=== PATIENT | male | born 1975 | race Caucasian/White ===

== ENCOUNTER 2020-01-02 13:51 | Outpatient (CLI) | payer OTHER, SELFPAY ==
--- NOTE | 2020-01-02 14:00 | XR_ITS ---
WS: [id number] Abdomen series: PA CHEST AND 2 VIEWS OF THE ABDOMEN HISTORY: ABDOMINAL PAIN GENERALIZED COMPARISON: None available. Lungs are clear and well aerated. Heart size is normal. No free air beneath the diaphragm. Air-fluid level in the dilated loop of GI tract in the LEFT abdomen. Dilated loop is probably a small bowel loop. Recent CT did not demonstrate a focal transition point. XR/XR acute abdomen series 51816 IMPRESSION: Dilated loop of small bowel in the LEFT abdomen, similar to the prior CT of 12/11. Near similar appearance to the prior CT from 12/14/2017.
== END 2020-01-02 13:52 | disposition home or self-care (01) ==
LOC: RADWPI 13:56
PROVIDERS: Family Provider Family Medicine; PCP Family Medicine; Visit Provider Family Medicine
DX: R10.84 Generalized abdominal pain (principal)
CPT/HCPCS: 74022

== ENCOUNTER 2020-02-20 16:53 | Outpatient (CLI) | payer OTHER, SELFPAY ==
[2020-02-20 17:27] LABS: Hematocrit 36.4 % (42.0-52.0); Hemoglobin 10.9 g/dL (11.7-16.6); Mean Corpuscular HGB Conc 29.9 g/dL (30.0-36.0); Mean Corpuscular Hemoglobin 30.7 pg (28.0-34.0); Mean Corpuscular Volume 102.5 fL (80-94); Mean Platelet Volume 11.7 fL (7.4-10.4); Platelet Count 446 10^3/cmm (130-400); Red Blood Count 3.55 10^6/uL (4.1-5.3); Red Cell Distribution Width 12.7 % (12.1-15.1); White Blood Count 9.2 10^3/uL (4.0-10.0)
[2020-02-20 17:53] LABS: Absolute Eosinophils 0.3 10^3/cmm (0.0-0.7); Absolute Segmented Neutrophil 7.2 10/cmm (1.6-7.1); Eosinophils 4 %; Lymphocytes 12 %; Monocytes Absolute 0.4 10^3/cmm (0.1-0.6); Segmented Neutrophils 79 %; Total Cells Counted 100 (0-100)
[2020-02-20 17:54] LABS: Platelet Estimate Increased (Normal); Polychromasia 1+
== END 2020-02-20 16:54 | disposition home or self-care (01) ==
LOC: LAB 16:57
PROVIDERS: Family Provider Family Medicine; PCP Family Medicine; Visit Provider Surgery
DX: Z48.89 Encounter for other specified surgical aftercare (principal)
CPT/HCPCS: 85007; 85027

== ENCOUNTER 2020-02-21 14:18 | Outpatient (CLI) | payer OTHER, SELFPAY ==
[2020-02-21 14:34] LABS: Hematocrit 38.1 % (42.0-52.0); Hemoglobin 12.2 g/dL (11.7-16.6); Mean Corpuscular Hemoglobin 29.8 pg (28.0-34.0); Mean Corpuscular Volume 92.9 fL (80-94); Mean Platelet Volume 9.8 fL (7.4-10.4); Platelet Count 640 10^3/cmm (130-400); Red Cell Distribution Width 12.3 % (12.1-15.1); White Blood Count 10.7 10^3/uL (4.0-10.0)
[2020-02-21 15:09] LABS: Eosinophils 1 %; Lymphocytes 14 %; Platelet Estimate Increased (Normal); Polychromasia 1+; Segmented Neutrophils 73 %; Stomatocytes 1+; Total Cells Counted 100 (0-100)
[2020-02-21 15:12] LABS: Blood Urea Nitrogen 25 mg/dL (6-20); Calcium 9.9 mg/dL (8.5-10.5); Carbon Dioxide 34 mmol/L (22-29); Glomerular Filtration Rate 122.5 mL/min (90-130); Magnesium 2.4 mg/dL (1.7-2.3); Total Protein 8.3 g/dL (6.6-8.7)
[2020-02-21 16:01] LABS: Glucose 84 mg/dL (65-115); Osmolality Calculated 274 mOsm/kg (285-295); Phosphorus 4.8 mg/dL (2.5-4.5); Potassium 3.9 mmol/L (3.5-5.1)
[2020-02-21 16:02] LABS: Alanine Aminotransferase 220 U/L (0-41); Aspartate Amino Transferase 90 U/L (0-40)
[2020-02-21 16:05] LABS: Alkaline Phosphatase 448 IU/L (40-130)
[2020-02-22 10:16] LABS: Anion Gap 18.9 (5-19); Chloride 85 mmol/L (98-107)
[2020-02-22 10:18] LABS: Total Bilirubin 0.8 mg/dL (0.15-1.2)
[2020-02-22 10:19] LABS: Albumin Level 4.2 g/dL (3.5-5.2); Globulin 4.1 g/dL (1.3-4.6)
[2020-02-22 10:27] LABS: Sodium 134 mmol/L (136-145)
[2020-02-22 13:54] LABS: Triglycerides 79 mg/dL (0-150)
== END 2020-02-21 14:19 | disposition home or self-care (01) ==
LOC: LAB 14:20
PROVIDERS: Family Provider Family Medicine; PCP Family Medicine; Visit Provider Surgery
DX: Z48.815 Encounter for surgical aftercare following surgery on the digestive system (principal)
CPT/HCPCS: 80053; 83735; 84100; 84478; 85007; 85027

== ENCOUNTER 2020-02-27 13:00 | Outpatient (CLI) | payer OTHER, SELFPAY ==
[2020-02-27 14:20] LABS: Hematocrit 31.9 % (42.0-52.0); Hemoglobin 9.9 g/dL (11.7-16.6); Mean Corpuscular Hemoglobin 29.8 pg (28.0-34.0); Mean Corpuscular Volume 96.1 fL (80-94); Mean Platelet Volume 11.2 fL (7.4-10.4); Platelet Count 326 10^3/cmm (130-400); Red Blood Count 3.32 10^6/uL (4.1-5.3); Red Cell Distribution Width 13.3 % (12.1-15.1)
[2020-02-27 14:41] LABS: Absolute Eosinophils 0.2 10^3/cmm (0.0-0.7); Absolute Segmented Neutrophil 3.8 10/cmm (1.6-7.1); Eosinophils 4 %; Lymphocytes 23 %; Monocytes Absolute 0.5 10^3/cmm (0.1-0.6); Platelet Estimate Normal (Normal); Segmented Neutrophils 64 %; Total Cells Counted 100 (0-100)
[2020-02-27 14:46] LABS: Alanine Aminotransferase 651 U/L (0-41); Albumin Level 3.2 g/dL (3.5-5.2); Alkaline Phosphatase 553 IU/L (40-130); Anion Gap 14.3 (5-19); Aspartate Amino Transferase 257 U/L (0-40); Blood Urea Nitrogen 13 mg/dL (6-20); Calcium 8.8 mg/dL (8.5-10.5); Carbon Dioxide 27 mmol/L (22-29); Chloride 102 mmol/L (98-107); Globulin 3.4 g/dL (1.3-4.6); Glomerular Filtration Rate 233.7 mL/min (90-130); Glucose 87 mg/dL (65-115); Magnesium 2.1 mg/dL (1.7-2.3); Osmolality Calculated 284 mOsm/kg (285-295); Phosphorus 3.8 mg/dL (2.5-4.5); Potassium 4.3 mmol/L (3.5-5.1); Sodium 139 mmol/L (136-145); Total Bilirubin 1.2 mg/dL (0.15-1.2); Total Protein 6.6 g/dL (6.6-8.7)
== END 2020-02-27 13:01 | disposition home or self-care (01) ==
LOC: LAB 13:01
PROVIDERS: Family Provider Family Medicine; PCP Family Medicine; Visit Provider Surgery
DX: Z48.815 Encounter for surgical aftercare following surgery on the digestive system (principal)
CPT/HCPCS: 80053; 83735; 84100; 85007; 85027

== ENCOUNTER 2020-03-05 14:56 | Outpatient (CLI) | payer OTHER, SELFPAY ==
[2020-03-05 15:30] LABS: Hematocrit 39.8 % (42.0-52.0); Hemoglobin 12.2 g/dL (11.7-16.6); Mean Corpuscular HGB Conc 30.7 g/dL (30.0-36.0); Mean Corpuscular Hemoglobin 29.5 pg (28.0-34.0); Mean Corpuscular Volume 96.4 fL (80-94); Mean Platelet Volume 12.5 fL (7.4-10.4); Platelet Count 187 10^3/cmm (130-400); Red Blood Count 4.13 10^6/uL (4.1-5.3); Red Cell Distribution Width 15.3 % (12.1-15.1); White Blood Count 3.2 10^3/uL (4.0-10.0)
[2020-03-05 15:53] LABS: Alanine Aminotransferase 474 U/L (0-41); Albumin Level 3.4 g/dL (3.5-5.2); Alkaline Phosphatase 480 IU/L (40-130); Aspartate Amino Transferase 153 U/L (0-40); Blood Urea Nitrogen 19 mg/dL (6-20); Calcium 8.6 mg/dL (8.5-10.5); Carbon Dioxide 28 mmol/L (22-29); Chloride 100 mmol/L (98-107); Glomerular Filtration Rate 233.7 mL/min (90-130); Glucose 90 mg/dL (65-115); Osmolality Calculated 278 mOsm/kg (285-295); Sodium 136 mmol/L (136-145); Total Bilirubin 1.2 mg/dL (0.15-1.2); Total Protein 6.4 g/dL (6.6-8.7)
[2020-03-05 17:16] LABS: Absolute Eosinophils 0.1 10^3/cmm (0.0-0.7); Absolute Segmented Neutrophil 1.7 10/cmm (1.6-7.1); Band Neutrophils Absolute 0.1 10^3/cmm (0.0-1.2); Eosinophils 4 %; Lymphocytes 32 %; Monocytes Absolute 0.2 10^3/cmm (0.1-0.6); Segmented Neutrophils 56 %; Total Cells Counted 100 (0-100)
[2020-03-05 17:17] LABS: Platelet Estimate Normal (Normal); Polychromasia 1+; Stomatocytes 1+
[2020-03-06 14:45] LABS: Phosphorus 4.2 mg/dL (2.5-4.5)
== END 2020-03-05 14:57 | disposition home or self-care (01) ==
PROVIDERS: Family Provider Family Medicine; PCP Family Medicine; Visit Provider Surgery
DX: Z48.815 Encounter for surgical aftercare following surgery on the digestive system (principal)
CPT/HCPCS: 80053; 83735; 84100; 85007; 85027

== ENCOUNTER 2020-03-12 14:34 | Outpatient (CLI) | payer OTHER, SELFPAY ==
[2020-03-12 15:35] LABS: Hematocrit 32.2 % (42.0-52.0); Hemoglobin 9.8 g/dL (11.7-16.6); Mean Corpuscular HGB Conc 30.4 g/dL (30.0-36.0); Mean Corpuscular Volume 98.5 fL (80-94); Mean Platelet Volume 12.8 fL (7.4-10.4); Platelet Count 262 10^3/cmm (130-400); Red Blood Count 3.27 10^6/uL (4.1-5.3); Red Cell Distribution Width 16.3 % (12.1-15.1); White Blood Count 4.9 10^3/uL (4.0-10.0)
[2020-03-12 16:40] LABS: Absolute Segmented Neutrophil 2.9 10/cmm (1.6-7.1); Eosinophils 2 %; Lymphocytes 30 %; Lymphocytes Absolute 1.5 10^3/cmm (1.2-3.4); Monocytes Absolute 0.3 10^3/cmm (0.1-0.6); Segmented Neutrophils 60 %; Total Cells Counted 100 (0-100)
[2020-03-12 16:41] LABS: Platelet Estimate Normal (Normal)
[2020-03-13 02:07] LABS: Alanine Aminotransferase 424 U/L (0-41); Albumin Level 3.7 g/dL (3.5-5.2); Alkaline Phosphatase 495 IU/L (40-130); Anion Gap 14.4 (5-19); Aspartate Amino Transferase 94 U/L (0-40); Blood Urea Nitrogen 19 mg/dL (6-20); Calcium 8.7 mg/dL (8.5-10.5); Carbon Dioxide 27 mmol/L (22-29); Chloride 101 mmol/L (98-107); Globulin 2.5 g/dL (1.3-4.6); Glomerular Filtration Rate 180.6 mL/min (90-130); Glucose 112 mg/dL (65-115); Osmolality Calculated 283 mOsm/kg (285-295); Potassium 4.4 mmol/L (3.5-5.1); Sodium 138 mmol/L (136-145); Total Bilirubin 0.5 mg/dL (0.15-1.2); Total Protein 6.2 g/dL (6.6-8.7)
[2020-03-13 07:50] LABS: Magnesium 2.1 mg/dL (1.7-2.3); Phosphorus 4.4 mg/dL (2.5-4.5)
== END 2020-03-12 14:35 | disposition home or self-care (01) ==
LOC: LAB 14:36
PROVIDERS: Family Provider Family Medicine; PCP Family Medicine; Visit Provider Surgery
DX: Z48.815 Encounter for surgical aftercare following surgery on the digestive system (principal)
CPT/HCPCS: 80053; 83735; 84100; 85007; 85027

== ENCOUNTER 2020-03-19 14:24 | Outpatient (CLI) | payer OTHER, SELFPAY ==
[2020-03-19 14:41] LABS: Hematocrit 33.3 % (42.0-52.0); Hemoglobin 10.3 g/dL (11.7-16.6); Mean Corpuscular HGB Conc 30.9 g/dL (30.0-36.0); Mean Corpuscular Hemoglobin 30.3 pg (28.0-34.0); Mean Corpuscular Volume 97.9 fL (80-94); Mean Platelet Volume 11.1 fL (7.4-10.4); Platelet Count 315 10^3/cmm (130-400); Red Cell Distribution Width 15.9 % (12.1-15.1); White Blood Count 4.9 10^3/uL (4.0-10.0)
[2020-03-19 15:26] LABS: Alanine Aminotransferase 264 U/L (0-41); Albumin Level 3.6 g/dL (3.5-5.2); Alkaline Phosphatase 379 IU/L (40-130); Anion Gap 12.9 (5-19); Aspartate Amino Transferase 52 U/L (0-40); Blood Urea Nitrogen 12 mg/dL (6-20); Carbon Dioxide 28 mmol/L (22-29); Chloride 103 mmol/L (98-107); Glomerular Filtration Rate 180.6 mL/min (90-130); Glucose 96 mg/dL (65-115); Magnesium 1.9 mg/dL (1.7-2.3); Osmolality Calculated 286 mOsm/kg (285-295); Phosphorus 4.1 mg/dL (2.5-4.5); Potassium 3.9 mmol/L (3.5-5.1); Sodium 140 mmol/L (136-145); Total Bilirubin 0.3 mg/dL (0.15-1.2); Total Protein 6.6 g/dL (6.6-8.7)
[2020-03-19 15:46] LABS: Absolute Segmented Neutrophil 2.7 10/cmm (1.6-7.1); Eosinophils 2 %; Lymphocytes 31 %; Monocytes Absolute 0.5 10^3/cmm (0.1-0.6); Platelet Estimate Normal (Normal); Segmented Neutrophils 56 %; Total Cells Counted 100 (0-100)
== END 2020-03-19 14:25 | disposition home or self-care (01) ==
LOC: LAB 14:26
PROVIDERS: Family Provider Family Medicine; PCP Family Medicine; Visit Provider Surgery
DX: Z48.815 Encounter for surgical aftercare following surgery on the digestive system (principal)
CPT/HCPCS: 80053; 83735; 84100; 85007; 85027

== ENCOUNTER 2021-03-25 12:49 | Outpatient (CLI) | payer OTHER, SELFPAY ==
--- NOTE | 2021-03-25 12:56 | XR_ITS ---
WS: [id number] LEFT FOOT: 3 VIEW(S) TECHNIQUE: AP, oblique and lateral. HISTORY: HEEL PAIN, LEFT COMPARISON: None available. No acute fracture or dislocation. Mild first IP joint. No erosions. 8 mm calcaneal spur. Mild enthesopathy at the Achilles tendon. XR/XR foot LT min 3V* [id number] IMPRESSION: Moderate size calcaneal spur.
== END 2021-03-25 12:50 | disposition home or self-care (01) ==
PROVIDERS: PCP Family Medicine; Visit Provider Family Medicine
DX: M79.672 Pain in left foot (principal); M77.32 Calcaneal spur, left foot
CPT/HCPCS: 73630

== ENCOUNTER → 2022-08-29 08:31 | Outpatient (BNVA) | payer OTHER, SELFPAY | PROVIDERS: PCP Family Medicine; Visit Provider Family Medicine | DX: Z00.00 Encounter for general adult medical examination without abnormal findings (principal) | CPT/HCPCS: 80053; 80061 ==

== ENCOUNTER → 2023-11-12 08:04 | Outpatient (BNVA) | payer OTHER, SELFPAY | PROVIDERS: PCP Family Medicine; Visit Provider Podiatrist Foot & Ankle Surgery | DX: M72.2 Plantar fascial fibromatosis (principal) | CPT/HCPCS: 20550; J1100; J3301; J3490 ==